=== PATIENT | female | born 1990 | race Caucasian/White ===

== ENCOUNTER 2018-03-30 09:59 | Emergency (ER) | payer BC ==
[2018-03-30 11:10] VITALS: BP 141/99
[2018-03-30] MEDS ORDERED: DOXYcycline CAP(*) 100 MG PO ONE (12:12)
--- NOTE | 2018-03-30 12:13 | ED ---
Skin Complaint - HPI Summary HPI Summary: had tick bite on the abdomen , tick found and dislodged using her fingers, denies any current symptoms, tick in place for less than 24 hours - History of Current Complaint Chief Complaint: UCSkin Time Seen by Provider: 03/30/18 12:04 Stated Complaint: TICK BITE Hx Last Menstrual Period: 03/08/18 Onset/Duration: Started Hours Ago Timing: Constant Onset Severity: Mild Current Severity: None Pain Intensity: 0 Skin Location: Discrete Aggravating Symptom(s): Nothing - Allergy/Home Medications Allergies/Adverse Reactions: Allergies Allergy/AdvReac Type Severity Reaction Status Date / Time No Known Allergies Allergy Verified 03/30/18 11:03 PMH/Surg Hx/FS Hx/Imm Hx Previously Healthy: Yes Infectious Disease History: No Infectious Disease History: Denies: Traveled Outside the [place] in Last 30 Days - Family History Known Family History: Positive: Hypertension - Social History Alcohol Use: Rare Substance Use Type: Reports: None Smoking Status (MU): Never Smoked Tobacco Review of Systems Constitutional: Negative Eyes: Negative ENT: Negative Cardiovascular: Negative Respiratory: Negative Gastrointestinal: Negative Genitourinary: Negative Musculoskeletal: Negative Skin: Negative All Other Systems Reviewed And Are Negative: Yes Physical Exam Triage Information Reviewed: Yes Vital Signs On Initial Exam: Initial Vitals Temp Pulse Resp BP Pulse Ox 36.4 C 88 16 141/99 100 03/30/18 11:04 03/30/18 11:04 03/30/18 11:04 03/30/18 11:04 03/30/18 11:04 Vital Signs Reviewed: Yes Appearance: Positive: Well-Appearing Skin: Positive: Warm, Dry - single lesion on the abdomen , with magnification noted no remaining tick parts, no target lesions seen Eyes: Positive: Normal ENT: Positive: Normal ENT inspection Diagnostics - Vital Signs Vital Signs Temp Pulse Resp BP Pulse Ox 03/30/18 11:04 36.4 C 88 16 141/99 100 - Laboratory Lab Statement: Any lab studies that have been ordered have been reviewed, and results considered in the medical decision making process. Course/Dx - Diagnoses Provider Diagnoses: Tick bite of abdominal wall Is Visit Related: No Discharge - Sign-Out/Discharge Documenting (check all that apply): Patient Departure All imaging exams completed and their final reports reviewed: No Studies - Discharge Plan Condition: Good Disposition: HOME Patient Education Materials: Tick Bite (ED) Referrals: Krista Hurt MD [Primary Care Provider] - - Billing Disposition and Condition Condition: GOOD Disposition: Home
== END 2018-03-30 12:35 | disposition home or self-care (01) ==
LOC: UCCORT 09:59
DX: T63.481A Toxic effect of venom of other arthropod, accidental (unintentional), initial encounter (principal); Y92.9 Unspecified place or not applicable
CPT/HCPCS: 86617; 99212; A9270-GY; G0463

== ENCOUNTER 2019-10-03 08:02 | Emergency (ER) | payer BC ==
--- OUTSIDE RECORDS SUMMARY | 2019-10-03 08:07 | XMS REPORT | Continuity of Care Document ---
:1990 External Reference #:[id number] Author Name Sulaiman Greer M.D. (transmitted by agent of provider Ravi Goel ) Address [address] [place] [address] Care Team Providers Name Role Phone Krista Hurt MD. 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 Provider Date Primigravida Liakristin Toledo CNM Onset: 05/24/2019 Social History Type Date Description Comments Sex Unknown Tobacco Use Start: Unknown Never Smoked Cigarettes ETOH Use Alcohol Use Prior To 1-2 per week Recreational Drug Use Does Not Use Drugs Allergies, Adverse Reactions, Alerts Description No Known Drug Allergies Medications Active Medications SIG Qnty Indications Ordering Provider Date Dha 1 by mouth every Unknown 200mg Capsules day, ok to use 200-400mg dha Immunizations Description No Information Available Vital Signs Date Vital Result Comment 05/11/2019 1:51pm BP Systolic 144 mmHg BP Diastolic 82 mmHg Height 62.75 inches 5'2.75" Weight 193.00 lb BMI (Body Mass Index) 34.5 kg/m2 Last Menstrual Period [id number] 1 Parity 0 Results Test Acquired Date Facility Test Result H/L Range Note Drug Screen 06/14/2019 [facility] Urine None Detected None 1 [place] [address] Hydrocodone Detect [facility] [phone] Screen Urine Oxycodone Screen None Detected None Detect Urine Fentanyl Screen None Detected None Detect Urine Methadone Screen None Detected None Detect Urine Buprenorphine Screen None Detected None Detect Urine Amphetamine Screen None Detected None Detect Urine Barbiturates Screen None Detected None Detect Urine Benzodiazepine Screen None Detected None Detect Urine Cannabinoids Screen None Detected None Detect Urine Cocaine Screen None Detected None Detect Urine Opiates Screen None Detected None Detect Urine Phencyclidine Screen None Detected None Detect 2 GC/Chlamydia Dna 06/14/2019 [facility] Chlamydia Negative Negative 3 [place] [address] trachomatis Lakesha [phone] Neisseria gonorrhoeae (GC) Lakesha Negative Negative [facility] Disclaimer (SEE NOTE) 4 Laboratory test 05/14/2019 [facility] Fta-Abs Negative Negative 5 [place] [address] [phone] PNL No 05/11/2019 [facility] Rubella Immune Immune 6 [place] [address] Screen [phone] Hemoglobin A1c 4.9 % Normal 4.0-5.6 7 Hepatitis B Surface Ag Nonreactive Nonreactive 8 Syphillis Igg W/Reflex RPR Equivocal Abnormal Negative 9 CBC With No 05/11/2019 [facility] White Blood 14.1 10^3/uL High 3.5-10.8 [place] [address] Count [phone] Red Blood Count 4.61 10^6/uL Normal 3.70-4.87 Hemoglobin 14.0 g/dL Normal 12.0-16.0 Hematocrit 42 % Normal 35-47 Mean Corpuscular Volume 91 fL Normal 80-97 Mean Corpuscular Hemoglobin 30 pg Normal 27-31 Mean Corpuscular HGB Conc 33 g/dL Normal 31-36 Red Cell Distribution Width 13 % Normal 10-15 Platelet Count 407 10^3/uL Normal 150-450 Mean Platelet Volume 9.0 fL Normal 7.4-10.4 Type And Screen 05/11/2019 [facility] Patient [place] [address] [phone] Antibody Screen NEGATIVE Lead 05/11/2019 [facility] Lead,Venous, B < 1.0 g/dL 0.0- 4.9 10 [place] [address] [phone] Venous/Capillary Venous Submitting Laboratory Phone [phone] HIV 1&2 p24 05/11/2019 [facility] HIV 4th Nonreactive [place] [address] Generation [phone] Parvovirus 05/11/2019 [facility] Parvovirus Positive Abnormal Negative [address] [place] [address] (B19) IgG Igm [phone] Antibody Parvovirus (B19) IgM Antibody Negative Negative Parvovirus Interpretation See Comment 12 Laboratory test 05/11/2019 [facility] Rapid Nonreactive Nonreactive 13 [place] [address] Plasma [phone] Reagin (RPR) Urine Culture 05/11/2019 [facility] Urine SEE RESULT 14 And [place], [place] [address] Culture BELOW Sensitivities [phone] 1 [id number] 2 The specimen was tested at the listed cutoffs: Drug Class Test level (ng/mL) Hydrocodone 300 Oxycodone 100 Fentanyl 1 Methadone 150 Buprenorphine 5 Amphetamines 500 Barbiturates 200 Benzodiazepines 200 Cocaine 150 Cannabinoids 50 Opiates 300 PCP 25 Specimen was received without chain of custody. Results should be used for medical purposes only. 3 [id number] 4 As with all diagnostic procedures, the laboratory results obtained should be used in conjunction with other clinical information available to the physician, including confirmation by another method, as applicable. 5 No serologic evidence of exposure to syphilis. ADDITIONAL INFORMATION This test is intended to be used as a confirmatory test on samples that have been tested by another syphilis test. Test Performed by: [facility] [employer] [facility] [address] [place] [address] [employer] Work Supervisor: Koffi Merrill M.D. Ph.D.; CLIA# [id number] 6 [id number] 7 Therapeutic target for the treatment of diabetes mellitus patients is <7% HBA1C, and in selective patients <6.0%. Please refer to [place] [employer] diabetic care guidelines for further information. 8 [id number] 9 Repeat testing is recommended in 8-14 days. 10 ADDITIONAL INFORMATION Testing performed by Inductively Coupled Plasma-Mass Spectrometry (ICP-MS). This test was developed and its performance characteristics determined by [facility] in a manner consistent with CLIA requirements. This test has not been cleared or approved by the U.S. Food and Drug Administration. 11 Test Performed by: [facility] [place] [address] [employer] Work Supervisor: Koffi Merrill M.D. Ph.D.; CLIA# [id number] 12 RESULT: Results suggest past infection. ADDITIONAL INFORMATION This test has been modified from the engineering drawings checker's instructions. Its performance characteristics were determined by [facility] in a manner consistent with CLIA requirements. This test has not been cleared or approved by the U.S. Food and Drug Administration. Test Performed by: [facility] [place] [address] [employer] Work Supervisor: Koffi Merrill M.D. Ph.D.; CLIA# [id number] 13 [id number] 14 SEE RESULT BELOW Name: JAMAAL ACEVEDO : [address]: Ann Toledo [facility] Acct: [id number] Unit: [id number] AGE: 29 Location: [facility] Re05/11/19 SEX: F Status: REG REF SPEC: [id number] DELORES: 05/11/19-[address]: Ann Toledo [facility] REQ: [id number] RECD: 05/11/19 STATUS:COMP _ SOURCE: URINE SPDESC: ORDERED: Urine Culture COMMENTS: [id number] Urine Source: Random Procedure Result Reported Site Urine Culture Final 05/12/19- 1416 ML No Growth (<1,000 CFU/mL) * ML - Main Lab . END OF REPORT DEPARTMENT OF PATHOLOGY, [address] [place] [address] Braxton Santana M.D. Director [facility] # [id number] Procedures Date Code Description Status 09/06/2019 53376 Echography Uterus Follow-Up Or Repeat Completed 07/19/2019 64284 Echography Uterus Complete Completed 05/11/2019 20440 OB Ultrasound First Trimester Completed Medical Devices Description No Information Available Encounters Description No Information Available Assessments Date Code Description Provider 09/06/2019 O10.012 Pre-existing essential hypertension Ultrasounds complicating , second trimester 08/19/2019 O10.012 Pre-existing essential hypertension Chris Jauregui , DO complicating , second trimester 07/19/2019 Z36.3 Encounter for screening for Sameer Murry MD malformations 07/19/2019 Z34.02 Encounter for supervision of normal first Ching Blanton CNM , second trimester 07/19/2019 Z36.3 Encounter for screening for Ultrasounds malformations 06/14/2019 Z34.01 Encounter for supervision of normal first Anisha Hernandez CNM , first trimester 05/11/2019 Z36.9 Encounter for screening, Ann Toledo CNM unspecified 05/11/2019 O26.91 related conditions, Tierney Galindo MD unspecified, first trimester 05/11/2019 O26.91 related conditions, Ultrasounds unspecified, first trimester Plan of Treatment Future Appointment(s):10/15/2019 3:00 pm - Rowena Sinclair MD at [facility]09/28/2019 11:30 am - Tierney Galindo MD at [facility] Functional Status Description No Information Available Mental Status Description No Information Available Referrals Description No Information Available
--- OUTSIDE RECORDS SUMMARY | 2019-10-03 08:07 | XMS REPORT | Continuity of Care Document ---
:1990 External Reference #:[id number] Author Name Laboratory (transmitted by agent of provider Milady Hansen) Address [address] [place] [address] Care Team Providers Name Role Phone Krista Hurt MD. - Internal Medicine Care Team Information [employer] Problems Active Problems Provider Date Primigravida Ann Toledo CNM Onset: 05/24/2019 Social History Type [...] Mass Index) 34.5 kg/m2 Last Menstrual Period [id number] 1 Parity 0 Results Test Acquired Date Facility Test Result H/L Range Note Laboratory test 09/06/2019 [facility] Glucose 1 HR 96 mg/dL Normal 70-160 1 [place] [address] Post Prandial [phone] CBC With No 09/06/2019 [facility] White Blood 13.3 High 3.5- 10.8 [place] [address] Count 10^3/uL [phone] Red Blood Count 4.20 10^6/uL Normal 3.70-4.87 Hemoglobin 13.2 g/dL Normal 12.0-16.0 Hematocrit 40 % Normal 35-47 Mean Corpuscular Volume 94 fL Normal 80-97 Mean Corpuscular Hemoglobin 31 pg Normal 27-31 Mean Corpuscular HGB Conc 33 g/dL Normal 31-36 Red Cell Distribution Width 14 % Normal 10-15 Platelet Count 350 10^3/uL Normal 150-450 Mean Platelet Volume 9.0 fL Normal 7.4-10.4 Comp Metabolic 09/06/2019 [facility] Sodium 137 mmol/L Normal 135-145 [place] [address] [phone] Potassium 3.5 mmol/L Normal 3.5-5.0 Chloride 105 mmol/L Normal 101-111 Co2 Carbon Dioxide 25 mmol/L Normal 22-32 Anion Gap 7 mmol/L Normal 2-11 Glucose 98 mg/dL Normal 70-100 Blood Urea Nitrogen 10 mg/dL Normal 6-24 Creatinine 0.59 mg/dL Normal 0.51-0.95 BUN/Creatinine Ratio 16.9 Normal 8-20 Calcium 9.5 mg/dL Normal 8.6-10.3 Total Protein 7.1 g/dL Normal 6.4-8.9 Albumin 3.7 g/dL Normal 3.2-5.2 Globulin 3.4 g/dL Normal 2-4 Albumin/Globulin Ratio 1.1 Normal 1-3 Total Bilirubin 0.30 mg/dL Normal 0.2-1.0 Alkaline Phosphatase 91 U/L Normal 34-104 Alt 13 U/L Normal 7-52 Ast 18 U/L Normal 13-39 Egfr Non- 122.3 >60 Egfr 147.9 >60 2 Laboratory 09/06/2019 [facility] Uric Acid 4.1 mg/dL Normal 2.3-6.6 3 [place] [address] [phone] Drug Screen 06/14/2019 [facility] Urine None None 4 [place] [address] Hydrocodone Detected Detect [facility] [phone] Screen Urine Oxycodone Screen None Detected None [...] Urine Phencyclidine Screen None Detected None Detect 5 GC/Chlamydia Dna 06/14/2019 [facility] Chlamydia Negative Negative 6 [place] [address] trachomatis Lakesha [phone] Neisseria gonorrhoeae (GC) Lakesha Negative Negative [facility] Disclaimer (SEE NOTE) 7 Laboratory 05/14/2019 [facility] Fta-Abs Negative Negative 8 [place] [address] [phone] Urine Culture 05/11/2019 [facility] Urine SEE RESULT 9 [place] [address] Culture BELOW Sensitivities [phone] Laboratory 05/11/2019 [facility] Rapid Nonreactive Nonreactive 10 [place] [address] Plasma [phone] Reagin (RPR) Parvovirus B19 05/11/2019 [facility] Parvovirus Positive Abnorma Negative [place] [address] (B19) IgG l [phone] Antibody Parvovirus (B19) IgM Antibody Negative Negative Parvovirus Interpretation See Comment 11 HIV 1&2 p24 05/11/2019 [facility] HIV 4th [place] [address] Generation [phone] Lead 05/11/2019 [facility] Lead,Venous, B < 1.0 g/dL 0.0- 4.9 12 [place] [address] [phone] Venous/Capillary Venous Submitting Laboratory Phone [phone] Type And Screen 05/11/2019 [facility] Patient [place] [address] [phone] Antibody Screen NEGATIVE CBC With No 05/11/2019 [facility] White Blood 14.1 10^3/uL High 3.5-10.8 [place] [address] Count [phone] Red Blood Count 4.61 10^6/uL Normal 3.70-4.87 Hemoglobin 14.0 g/dL Normal 12.0-16.0 Hematocrit 42 % Normal 35-47 Mean Corpuscular Volume 91 fL Normal 80-97 Mean Corpuscular Hemoglobin 30 pg Normal 27-31 Mean Corpuscular HGB Conc 33 g/dL Normal 31-36 Red Cell Distribution Width 13 % Normal 10-15 Platelet Count 407 10^3/uL Normal 150-450 Mean Platelet Volume 9.0 fL Normal 7.4-10.4 PNL No 05/11/2019 [facility] Rubella Screen Immune Immune 14 [place] [address] [phone] Hemoglobin A1c 4.9 % Normal 4.0-5.6 15 Hepatitis B Surface Ag Nonreactive Nonreactive 16 Syphillis Igg W/Reflex RPR Equivocal Abnormal Negative 17 1 [id number] 2 Because ethnic data is not always readily available, this report includes an eGFR for both -Americans and non- Americans. The National Kidney Disease Education Program (NKDEP) does not endorse the use of the MDRD equation for patients that are not between the ages of 18 and 70, are , have extremes of body size, muscle mass, or nutritional status, or are non- or non-. According to the National Kidney Foundation, irrespective of diagnosis, the stage of the disease is based on the level of kidney function: Stage Description GFR(mL/min/1.73 m(2)) 1 Kidney damage with normal or decreased GFR 90 2 Kidney damage with mild decrease in GFR 60-89 3 Moderate decrease in GFR 30-59 4 Severe decrease in GFR 15-29 5 Kidney failure <15 (or dialysis) 3 [id number] 4 [id number] 5 The specimen was tested at the listed cutoffs: Drug Class Test level (ng/mL) Hydrocodone 300 Oxycodone 100 Fentanyl 1 Methadone 150 Buprenorphine 5 Amphetamines 500 Barbiturates 200 Benzodiazepines 200 Cocaine 150 Cannabinoids 50 Opiates 300 PCP 25 Specimen was received without chain of custody. Results should be used for medical purposes only. 6 [id number] 7 As with all diagnostic procedures, the laboratory results obtained should be used in conjunction with other clinical information available to the physician, including confirmation by another method, as applicable. 8 No serologic evidence of exposure to syphilis. ADDITIONAL INFORMATION This test is intended to be used as a confirmatory test on samples that have been tested by another syphilis test. Test Performed by: [facility] [address] [place] [address] Beach Patrol Lieutenant: Koffi Merrill M.D. Ph.D.; CLIA# [id number] 9 SEE RESULT BELOW Name: JAMAAL ACEVEDO : [address]: Ann Toledo CNM Acct: [id number] Unit: [id number] AGE: 29 Location: [facility] Re05/11/19 SEX: F Status: REG REF SPEC: [id number] DELORES: 05/11/19-[address]: Ann Toledo CNM REQ: [id number] RECD: 05/11/19 STATUS:COMP _ SOURCE: URINE SPDESC: ORDERED: Urine Culture COMMENTS: [id number] Urine Source: Random Procedure Result Reported Site Urine Culture Final 05/12/19- 1416 ML No Growth (<1,000 CFU/mL) * ML - Main Lab . END OF REPORT DEPARTMENT OF PATHOLOGY, [address] [place] [address] Braxton Santana M.D. Director [facility] # [id number] 10 [id number] 11 RESULT: Results suggest past infection. ADDITIONAL INFORMATION This test has been modified from the spool tender's instructions. Its performance characteristics were determined by [facility] in a manner consistent with CLIA requirements. This test has not been cleared or approved by the U.S. Food and Drug Administration. Test Performed by: [facility] - [address] [address] Beach Patrol Lieutenant: Koffi Merrill M.D. Ph.D.; CLIA# [id number] 12 ADDITIONAL INFORMATION Testing performed by Inductively Coupled Plasma-Mass Spectrometry (ICP-MS). This test was developed and its performance characteristics determined by [facility] in a manner consistent with CLIA requirements. This test has not been cleared or approved by the U.S. Food and Drug Administration. 13 Test Performed by: [facility] [address] [place] [address] Beach Patrol Lieutenant: Koffi Merrill M.D. Ph.D.; CLIA# [id number] 14 [id number] 15 Therapeutic target for the treatment of diabetes mellitus patients is <7% HBA1C, and in selective patients <6.0%. Please refer to [place] [employer] diabetic care guidelines for further information. 16 [id number] 17 Repeat testing is recommended in 8-14 days. Procedures Date Code Description Status 09/06/2019 51808 Echography Uterus Follow-Up Or Repeat Completed 07/19/2019 13719 Echography Uterus Complete Completed 05/11/2019 69882 OB Ultrasound First Trimester Completed Medical Devices Description No Information Available Encounters Description No Information Available Assessments Date Code Description Provider 09/06/2019 Z36.9 Encounter for screening, Sameer Murry MD unspecified 09/06/2019 O10.012 Pre-existing essential hypertension Sulaiman Greer M.D. complicating , second trimester 09/06/2019 Z34.82 Encounter for supervision of other normal Sulaiman Greer M.D. , second trimester 09/06/2019 Z36.9 Encounter for screening, Laboratory unspecified 09/06/2019 O10.012 Pre-existing essential hypertension Ultrasounds complicating , second trimester 08/19/2019 O10.012 Pre-existing essential hypertension Chris Jauregui JR, DO complicating , second trimester 07/19/2019 Z36.3 Encounter for screening for Sameer Murry MD malformations 07/19/2019 Z34.02 Encounter for supervision of normal first Ching Blanton CNM , second trimester 07/19/2019 Z36.3 Encounter for screening for Ultrasounds malformations 06/14/2019 Z34.01 Encounter for supervision of normal first Anisha JESUSITA Hernandez , first trimester 05/11/2019 Z36.9 Encounter for screening, Ann Toledo CNM unspecified 05/11/2019 O26.91 related conditions, Tierney Galindo MD unspecified, first trimester 05/11/2019 O26.91 related conditions, Ultrasounds unspecified, first trimester Plan of Treatment Future Appointment(s):10/15/2019 3:00 pm - [facility] at [facility]/2019 11:30 am - Tierney Galindo MD at [facility] Functional Status Description No Information Available Mental Status Description No Information Available Referrals Description No Information Available
--- OUTSIDE RECORDS SUMMARY | 2019-10-03 08:07 | XMS REPORT | Continuity of Care Document ---
:1990 External Reference #:[id number] Author Name Ultrasounds (transmitted by agent of provider Milady Hansen) Address [address] [place] [address] Care Team Providers Name Role Phone Krista Hurt MD. 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 Active Problems Provider Date Primigravida Ann [...] Mass Index) 34.5 kg/m2 Last Menstrual Period 7929264 1 Parity 0 Results Test Acquired Facility Test Result H/L Range Note Date Laboratory test 09/06/2019 [facility] Glucose 1 HR <pending> [place] [address] Post Prandial [phone] Laboratory test 09/06/2019 [facility] Uric Acid <pending> [place] [address] [phone] Drug Screen 06/14/2019 [facility] Urine None None 1 [place] [address] Hydrocodone Detected Detect [facility] [phone] Screen Urine Oxycodone Screen None Detected None [...] Detected None Detect 2 GC/Chlamydia Dna 06/14/2019 [facility] Chlamydia Negative Negative 3 [place] [address] trachomatis Lakesha [phone] Neisseria gonorrhoeae (GC) Lakesha Negative Negative [facility] Disclaimer (SEE NOTE) 4 Laboratory 05/14/2019 [facility] Fta-Abs Negative Negative 5 [place] [address] [phone] Urine Culture 05/11/2019 [facility] Urine SEE RESULT 6 [place] [address] Culture BELOW Sensitivities [phone] Laboratory 05/11/2019 [facility] Rapid Nonreactive Nonreactive 7 [place] [address] Plasma [phone] Reagin (RPR) Parvovirus B19 05/11/2019 [facility] Parvovirus Positive Abnormal Negative I[place] [address] (B19) IgG [phone] Antibody Parvovirus (B19) IgM Antibody Negative Negative Parvovirus Interpretation See Comment 8 HIV 1&2 p24 05/11/2019 [facility] HIV 4th Nonreactive [place] [address] Generation [phone] Lead 05/11/2019 [facility] Lead,Venous, B < 1.0 g/dL 0.0- 4.9 9 [place] [address] [phone] Venous/Capillary Venous Submitting Laboratory Phone [phone] Type And Screen 05/11/2019 [facility] Patient Blood [place] [address] [phone] Antibody Screen NEGATIVE CBC With No 05/11/2019 [facility] White Blood 14.1 10^3/uL High 3.5-10.8 [place] [address] Count [phone] Red Blood Count 4.61 10^6/uL Normal 3.70-4.87 Hemoglobin 14.0 g/dL Normal 12.0-16.0 Hematocrit 42 % Normal 35-47 Mean Corpuscular Volume 91 fL Normal 80-97 Mean Corpuscular Hemoglobin 30 pg Normal 27-31 Mean Corpuscular HGB Conc 33 g/dL Normal 31-36 Red Cell Distribution Width 13 % Normal 10-15 Platelet Count 407 10^3/uL Normal 150-450 Mean Platelet Volume 9.0 fL Normal 7.4-10.4 PNL No 05/11/2019 [facility] Rubella Screen Immune Immune 11 [place] [address] [phone] Hemoglobin A1c 4.9 % Normal 4.0-5.6 12 Hepatitis B Surface Ag Nonreactive Nonreactive 13 Syphillis Igg W/Reflex RPR Equivocal Abnormal Negative 14 1 [id number] 2 The specimen was tested at the listed cutoffs: Drug Class Test level (ng/mL) Hydrocodone 300 Oxycodone 100 Fentanyl 1 Methadone 150 Buprenorphine 5 Amphetamines 500 Barbiturates 200 Benzodiazepines 200 Cocaine 150 Cannabinoids 50 Opiates 300 PCP 25 Specimen was received without chain of custody. Results should be used for medical purposes only. 3 [id number] 4 As with all diagnostic procedures, the [...] by another syphilis test. Test Performed by: [facility] [address] [place] [address] Extension Work Instructor: Koffi Merrill M.D. Ph.D.; CLIA# [id number] 6 SEE RESULT BELOW Name: JAMAAL ACEVEDO : [address]: Ann Toledo [facility] Acct: [id number] Unit: [id number] AGE: 29 Location: [facility] Re05/11/19 SEX: F Status: REG REF SPEC: [id number] DELORES: 05/11/19-[address]: Ann AMBRIZ REQ: [id number] RECD: 05/11/19 STATUS:COMP _ SOURCE: URINE SPDESC: ORDERED: Urine Culture COMMENTS: [id number] Urine Source: Random Procedure Result Reported Site Urine Culture Final 05/12/19- 1416 ML No Growth (<1,000 CFU/mL) * ML - [facility] . END OF REPORT DEPARTMENT OF PATHOLOGY, [address] [place] [address] Braxton Santana M.D. Director [facility] # [id number] RESULT: Results suggest past infection. ADDITIONAL INFORMATION This test has been modified from the scheduler's instructions. Its performance characteristics were determined by [facility] in a manner consistent with CLIA requirements. This test has not been cleared or approved by the U.S. Food and Drug Administration. Test Performed by: [place] [address] Extension Work Instructor: Koffi Merrill M.D. Ph.D.; CLIA# [id number] 9 ADDITIONAL INFORMATION Testing performed by Inductively Coupled Plasma-Mass Spectrometry (ICP-MS). This test was developed and its performance characteristics determined by [facility] in a manner consistent with CLIA requirements. This test has not been cleared or approved by the U.S. Food and Drug Administration. 10 Test Performed by: [place] [address] Extension Work Instructor: Koffi Merrill M.D. Ph.D.; [facility]# [id number] 11 [id number] 12 Therapeutic target for the treatment of diabetes mellitus patients is <7% HBA1C, and in selective patients <6.0%. Please refer to [place] [employer] diabetic care guidelines for further information. 13 [id number] 14 Repeat testing is recommended in 8-14 days. Procedures Date Code Description Status 09/06/2019 97501 Echography Uterus Follow-Up Or Repeat Completed 07/19/2019 99740 Echography Uterus Complete Completed 05/11/2019 07646 OB Ultrasound First Trimester Completed Medical Devices Description No Information Available Encounters Description No Information Available Assessments Date Code Description Provider 09/06/2019 O10.012 Pre-existing essential hypertension Sulaiman Greer M.D. complicating , second trimester 09/06/2019 Z34.82 Encounter for supervision of other normal Sulaiman Greer M.D. , second trimester 09/06/2019 Z36.9 Encounter for screening, Laboratory unspecified 09/06/2019 O10.012 Pre-existing essential hypertension Ultrasounds complicating , second trimester 08/19/2019 O10.012 Pre-existing essential hypertension Chris Juventino , DO complicating , second trimester 07/19/2019 Z36.3 Encounter for screening for Sameer Murry MD malformations 07/19/2019 Z34.02 Encounter for supervision of normal first Ching Blanton [facility] , second trimester 07/19/2019 Z36.3 Encounter for [...] 3:00 pm - Rowena Sinclair MD at [facility]09/28/2019 11:30 am - Tierney Galindo MD at [facility] Functional Status Description No Information Available Mental Status Description No Information Available Referrals Description No Information Available
--- OUTSIDE RECORDS SUMMARY | 2019-10-03 08:07 | XMS REPORT | Continuity of Care Document ---
:1990 External Reference #:[id number] Author Name Laboratory (transmitted by agent of provider Lorri Rutherford) Address [address] [place] [address] Care Team Providers Name Role Phone Krista Hurt MD. - Internal Medicine Care Team Information Rehabilitation Liaison [phone] Problems Active Problems Provider Date Primigravida Ann [...] Mass Index) 34.5 kg/m2 Last Menstrual Period 1232977 1 Parity 0 Results Test Acquired Facility Test Result H/L Range Note Date Laboratory test 09/06/2019 [facility] Glucose 1 HR <pending> [place] [address] Post Prandial [phone] Laboratory test 09/06/2019 [facility] Uric Acid <pending> [place] [address] [phone] Drug Screen 06/14/2019 [facility] Urine None None 1 [place] [address] Hydrocodone Detected Detect [facility] [phone] Screen Urine Oxycodone Screen None Detected None [...] Detected None Detect 2 GC/Chlamydia Dna 06/14/2019 [facility] Chlamydia Negative Negative 3 [place] [address] trachomatis Lakesha [phone] Neisseria gonorrhoeae (GC) Lakesha Negative Negative [facility] Disclaimer (SEE NOTE) 4 Laboratory 05/14/2019 [facility] Fta-Abs Negative Negative 5 [place] [address] [phone] Urine Culture 05/11/2019 [facility] Urine SEE RESULT 6 [place] [address] Culture BELOW Sensitivities [phone] Laboratory 05/11/2019 [facility] Rapid Nonreactive Nonreactive 7 [place] [address] Plasma [phone] Reagin (RPR) Parvovirus B19 05/11/2019 [facility] Parvovirus Positive Abnormal Negative [place] [address] (B19) IgG [phone] Antibody Parvovirus (B19) IgM Antibody Negative Negative Parvovirus Interpretation See Comment 8 HIV 1&2 p24 05/11/2019 [facility] HIV 4th [place] [address] Generation [phone] Lead 05/11/2019 [facility] Lead,Venous, B < 1.0 g/dL 0.0- 4.9 9 [place] [address] [phone] Venous/Capillary Venous Submitting Laboratory Phone [phone] Type And Screen 05/11/2019 [facility] Patient [place] [address] [phone] Antibody Screen NEGATIVE CBC With No 05/11/2019 [facility] White Blood 14.1 10^3/uL High 3.5-10.8 [place] [address] Count [phone] Red Blood Count 4.61 10^6/uL Normal 3.70-4.87 Hemoglobin 14.0 g/dL Normal 12.0-16.0 Hematocrit 42 % Normal 35-47 Mean Corpuscular Volume 91 fL Normal 80-97 Mean Corpuscular Hemoglobin 30 pg Normal 27-31 Mean Corpuscular HGB Conc 33 g/dL Normal 31-36 Red Cell Distribution Width 13 % Normal 10-15 Platelet Count 407 10^3/uL Normal 150-450 Mean Platelet Volume 9.0 fL Normal 7.4-10.4 PNL No 05/11/2019 [facility] Rubella Screen Immune Immune 11 [place] [address] [phone] Hemoglobin A1c 4.9 % Normal 4.0-5.6 12 Hepatitis B Surface Ag Nonreactive Nonreactive 13 Syphillis Igg W/Reflex RPR Equivocal Abnormal Negative 14 1 [id number] 2 The specimen was tested at the listed cutoffs: Drug Class Test level (ng/mL) Hydrocodone 300 Oxycodone 100 Fentanyl 1 Methadone 150 Buprenorphine 5 Amphetamines 500 Barbiturates 200 Benzodiazepines 200 Cocaine 150 Cannabinoids 50 Opiates 300 PCP 25 Specimen was received without chain of custody. Results should be used for medical purposes only. 3 [id number] 4 As with all diagnostic procedures, the [...] another syphilis test. Test Performed by: [facility] [address] [place] [address] Ripper Operator: Koffi Merrill M.D. Ph.D.; CLIA# [id number] 6 SEE RESULT BELOW Name: JAMAAL ACEVEDO : [address]: Ann Toledo [facility] Acct: [id number] Unit: [id number] AGE: 29 Location: [facility] Re05/11/19 SEX: F Status: REG REF SPEC: [id number] DELORES: 05/11/19-[address]: Ann Toledo [facility] REQ: [id number] RECD: 05/11/19 STATUS:COMP _ SOURCE: URINE SPDESC: ORDERED: Urine Culture COMMENTS: [id number] Urine Source: Random Procedure Result Reported Site Urine Culture Final 05/12/19- 1416 ML No Growth (<1,000 CFU/mL) * ML - [facility] . END OF REPORT DEPARTMENT OF PATHOLOGY, [address] [place] [address] Braxton Santana M.D. Director [facility] # [id number] RESULT: Results suggest past infection. ADDITIONAL INFORMATION This test has been modified from the granulator operator's instructions. Its performance characteristics were determined by [facility] in a manner consistent with CLIA requirements. This test has not been cleared or approved by the U.S. Food and Drug Administration. Test Performed by: [facility] [place] [address] Ripper Operator: Koffi Merrill M.D. Ph.D.; CLIA# [id number] 9 ADDITIONAL INFORMATION Testing performed by Inductively Coupled Plasma-Mass Spectrometry (ICP-MS). This test was developed and its performance characteristics determined by [facility] in a manner consistent with CLIA requirements. This test has not been cleared or approved by the U.S. Food and Drug Administration. 10 Test Performed by: [facility] [place] [address] Ripper Operator: Koffi Merrill M.D. Ph.D.; [facility]# [id number] 11 [id number] 12 Therapeutic target for the treatment of diabetes mellitus patients is <7% HBA1C, and in selective patients <6.0%. Please refer to [place] Diabetes Association diabetic care guidelines for further information. 13 [id number] 14 Repeat testing is recommended in 8-14 days. Procedures Date Code Description Status 09/06/2019 84222 Echography Uterus Follow-Up Or Repeat Completed 07/19/2019 76027 Echography Uterus Complete Completed 05/11/2019 44298 OB Ultrasound First Trimester Completed Medical Devices Description No Information Available Encounters Description No Information Available Assessments Date Code Description Provider 09/06/2019 Z36.9 Encounter for screening, Laboratory unspecified 09/06/2019 O10.012 Pre-existing essential hypertension Ultrasounds complicating , second trimester 08/19/2019 O10.012 Pre-existing essential hypertension Chris Jauregui , DO complicating , second trimester 07/19/2019 Z36.3 Encounter for screening for Sameer Murry MD malformations 07/19/2019 Z34.02 Encounter for supervision of normal first Ching Blanton [facility] , second trimester 07/19/2019 Z36.3 Encounter for screening for Ultrasounds malformations 06/14/2019 Z34.01 Encounter for supervision of normal first Anisha Hernandez [facility] , first trimester 05/11/2019 Z36.9 Encounter for screening, PB Flores unspecified 05/11/2019 O26.91 related conditions, Tierney Galindo MD unspecified, first trimester 05/11/2019 O26.91 related conditions, Ultrasounds unspecified, first trimester Plan of Treatment Future Appointment(s):10/15/2019 3:00 pm - Rowena Sinclair MD at [facility]09/28/2019 11:30 am - Tierney Galindo MD at [facility] Functional Status Description No Information Available Mental Status Description No Information Available Referrals Description No Information Available
--- OUTSIDE RECORDS SUMMARY | 2019-10-03 08:07 | XMS REPORT | Continuity of Care Document ---
:1990 External Reference #:[id number] Author Name Sulaiman Greer M.D. (transmitted by agent of provider Milady Hansen) Address [address] [place] [address] Care Team Providers Name Role Phone Krista Hurt MD. - Internal Medicine Care Team Information Bee Tender [phone] Problems Active Problems Provider Date Primigravida Liakristin [...] Mass Index) 34.5 kg/m2 Last Menstrual Period 4541246 1 Parity 0 Results Test Acquired Date Facility Test Result H/L Range Note Laboratory test 09/06/2019 [facility] Glucose 1 HR 96 mg/dL Normal 70-160 1 [place] [address] Post Prandial [phone] CBC With No 09/06/2019 [facility] White Blood 13.3 High 3.5- 10.8 [place] [address] Count 10^3/uL [phone] Red Blood Count 4.20 10^6/uL Normal 3.70-4.87 Hemoglobin 13.2 g/dL Normal 12.0-16.0 Hematocrit 40 % Normal 35-47 Mean Corpuscular Volume 94 fL Normal 80-97 Mean Corpuscular Hemoglobin 31 pg Normal 27-31 Mean Corpuscular HGB Conc 33 g/dL Normal 31-36 Red Cell Distribution Width 14 % Normal 10-15 Platelet Count 350 10^3/uL Normal 150-450 Mean Platelet Volume 9.0 fL Normal 7.4-10.4 Comp Metabolic 09/06/2019 [facility] Sodium 137 mmol/L Normal 135-145 [place] [address] [phone] Potassium 3.5 mmol/L Normal 3.5-5.0 Chloride 105 [...] >60 Egfr 147.9 >60 2 Laboratory 09/06/2019 [facility] Uric Acid 4.1 mg/dL Normal 2.3-6.6 3 [place] [address] [phone] Drug Screen 06/14/2019 [facility] Urine None None 4 [place] [address] Hydrocodone Detected Detect [facility] [phone] Screen Urine Oxycodone Screen None Detected None [...] Detected None Detect 5 GC/Chlamydia Dna 06/14/2019 [facility] Chlamydia Negative Negative 6 [place] [address] trachomatis Lakesha [phone] Neisseria gonorrhoeae (GC) Lakesha Negative Negative [facility] Disclaimer (SEE NOTE) 7 Laboratory 05/14/2019 [facility] Fta-Abs Negative Negative 8 [place] [address] [phone] Urine Culture 05/11/2019 [facility] Urine SEE RESULT 9 [place] [address] Culture BELOW Sensitivities [phone] Laboratory 05/11/2019 [facility] Rapid Nonreactive Nonreactive 10 [place] [address] Plasma [phone] Reagin (RPR) Parvovirus B19 05/11/2019 [facility] Parvovirus Positive Abnorma Negative [place] [address] (B19) IgG l [phone] Antibody Parvovirus (B19) IgM Antibody Negative Negative Parvovirus Interpretation See Comment 11 HIV 1&2 p24 05/11/2019 [facility] HIV 4th Nonreactive [place] [address] Generation [phone] Lead 05/11/2019 [facility] Lead,Venous, B < 1.0 g/dL 0.0- 4.9 12 [place] [address] [phone] Venous/Capillary Venous Submitting Laboratory Phone [phone] Type And Screen 05/11/2019 [facility] Patient Blood [place] [address] [phone] Antibody Screen NEGATIVE CBC With No 05/11/2019 [facility] White Blood 14.1 10^3/uL High 3.5-10.8 [place] [address] Count [phone] Red Blood Count 4.61 10^6/uL Normal 3.70-4.87 Hemoglobin 14.0 g/dL Normal 12.0-16.0 Hematocrit 42 % Normal 35-47 Mean Corpuscular Volume 91 fL Normal 80-97 Mean Corpuscular Hemoglobin 30 pg Normal 27-31 Mean Corpuscular HGB Conc 33 g/dL Normal 31-36 Red Cell Distribution Width 13 % Normal 10-15 Platelet Count 407 10^3/uL Normal 150-450 Mean Platelet Volume 9.0 fL Normal 7.4-10.4 PNL No 05/11/2019 [facility] Rubella Screen Immune Immune 14 [place] [address] [phone] Hemoglobin A1c 4.9 % Normal 4.0-5.6 15 Hepatitis B Surface Ag Nonreactive Nonreactive 16 Syphillis Igg W/Reflex RPR Equivocal Abnormal Negative 17 1 [id number] 2 Because ethnic data is not always [...] 5 Kidney failure <15 (or dialysis) 3 [id number] 4 [id number] 5 The specimen was tested at the listed cutoffs: Drug Class Test level (ng/mL) Hydrocodone 300 Oxycodone 100 Fentanyl 1 Methadone 150 Buprenorphine 5 Amphetamines 500 Barbiturates 200 Benzodiazepines 200 Cocaine 150 Cannabinoids 50 Opiates 300 PCP 25 Specimen was received without chain of custody. Results should be used for medical purposes only. 6 [id number] 7 As with all diagnostic procedures, the [...] another syphilis test. Test Performed by: [facility] [address] [place] [address] Sinter Machine Operator: Koffi Merrill M.D. Ph.D.; CLIA# [id number] 9 SEE RESULT BELOW Name: JAMAAL ACEVEDO : [address]: Ann Toledo [facility] Acct: [id number] Unit: [id number] AGE: 29 Location: [facility] Re05/11/19 SEX: F Status: REG REF SPEC: [id number] DELORES: 05/11/19-[address]: Ann AMBRIZ REQ: [id number] RECD: 05/11/19 STATUS:COMP _ SOURCE: URINE SPDESC: ORDERED: Urine Culture COMMENTS: [id number] Urine Source: Random Procedure Result Reported Site Urine Culture Final 05/12/19- 1416 ML No Growth (<1,000 CFU/mL) * ML - [facility] . END OF REPORT DEPARTMENT OF PATHOLOGY, [address] [place] [address] Braxton Santana M.D. Director [facility] # [id number] RESULT: Results suggest past infection. ADDITIONAL INFORMATION This test has been modified from the agricultural economist's instructions. Its performance characteristics were determined by [facility] in a manner consistent with CLIA requirements. This test has not been cleared or approved by the U.S. Food and Drug Administration. Test Performed by: [facility] [address] [place] [address] Sinter Machine Operator: Koffi Merrill M.D. Ph.D.; CLIA# [id number] 12 ADDITIONAL INFORMATION Testing performed by Inductively Coupled Plasma-Mass Spectrometry (ICP-MS). This test was developed and its performance characteristics determined by [facility] in a manner consistent with CLIA requirements. This test has not been cleared or approved by the U.S. Food and Drug Administration. 13 Test Performed by: [facility] [address] [place] [address] Sinter Machine Operator: Koffi Merrill M.D. Ph.D.; CLIA# [id number] 14 [id number] 15 Therapeutic target for the treatment of diabetes mellitus patients is <7% HBA1C, and in selective patients <6.0%. Please refer to [place] [employer] diabetic care guidelines for further information. 16 [id number] 17 Repeat testing is recommended in 8-14 days. Procedures Date Code Description Status 09/06/2019 32585 Echography Uterus Follow-Up Or Repeat Completed 07/19/2019 88224 Echography Uterus Complete Completed 05/11/2019 34774 OB Ultrasound First Trimester Completed Medical Devices [...] O10.012 Pre-existing essential hypertension Chris Jauregui JR, complicating , second trimester 07/19/2019 Z36.3 Encounter [...] 3:00 pm - Rowena Sinclair MD at [facility]09/28/2019 11:30 am - Tierney Galindo MD at [facility] Functional Status Description No Information Available Mental Status Description No Information Available Referrals Description No Information Available
--- OUTSIDE RECORDS SUMMARY | 2019-10-03 08:07 | XMS REPORT | Continuity of Care Document ---
:1990 External Reference #:[id number] Author Name Sameer Murry MD (transmitted by agent of provider Milady Hansen) Address [address] [place] [address] Care Team Providers Name Role Phone Krista Hurt MD. 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 Problems Provider Date Primigravida [...] day, ok to use 200-400mg dha Immunizations CPT Code Status Date Vaccine Lot # [id number] Given 09/28/2019 Tetnus, Diptheria Toxoids And Acellular Pertussis, [id number] PT > 7Yrs Old Vital Signs Date Vital Result Comment 05/11/2019 1:51pm BP Systolic 144 mmHg BP Diastolic 82 mmHg Height 62.75 inches 5'2.75" Weight 193.00 lb BMI (Body Mass Index) 34.5 kg/m2 Last Menstrual Period [id number] 1 Parity 0 Results Test Acquired Date Facility Test Result H/L Range Note Laboratory test 09/06/2019 [facility] Glucose 1 HR 96 mg/dL Normal 70-160 1 [place] [address] Post Prandial [phone] CBC With No 09/06/2019 [facility] White Blood 13.3 High 3.5- 10.8 [place] [address] Count 10^3/uL [phone] Red Blood Count 4.20 10^6/uL Normal 3.70-4.87 Hemoglobin 13.2 g/dL Normal 12.0-16.0 Hematocrit 40 % Normal 35-47 Mean Corpuscular Volume 94 fL Normal 80-97 Mean Corpuscular Hemoglobin 31 pg Normal 27-31 Mean Corpuscular HGB Conc 33 g/dL Normal 31-36 Red Cell Distribution Width 14 % Normal 10-15 Platelet Count 350 10^3/uL Normal 150-450 Mean Platelet Volume 9.0 fL Normal 7.4-10.4 Comp Metabolic 09/06/2019 [facility] Sodium 137 mmol/L Normal 135-145 [place] [address] [phone] Potassium 3.5 mmol/L Normal 3.5-5.0 Chloride 105 [...] >60 Egfr 147.9 >60 2 Laboratory 09/06/2019 [facility] Uric Acid 4.1 mg/dL Normal 2.3-6.6 3 [place] [address] [phone] Drug Screen 06/14/2019 [facility] Urine None None 4 [place] [address] Hydrocodone Detected Detect [facility] [phone] Screen Urine Oxycodone Screen None Detected None [...] Detected None Detect 5 GC/Chlamydia Dna 06/14/2019 [facility] Chlamydia Negative Negative 6 [place] [address] trachomatis Lakesha [phone] Neisseria gonorrhoeae (GC) Lakesha Negative Negative [facility] Disclaimer (SEE NOTE) 7 Laboratory 05/14/2019 [facility] Fta-Abs Negative Negative 8 [place] [address] [phone] Urine Culture 05/11/2019 [facility] Urine SEE RESULT 9 [place] [address] Culture BELOW Sensitivities [phone] Laboratory 05/11/2019 [facility] Rapid Nonreactive Nonreactive 10 [place] [address] Plasma [phone] Reagin (RPR) Parvovirus B19 05/11/2019 [facility] Parvovirus Positive Abnorma Negative [place] [address] (B19) IgG l [phone] Antibody Parvovirus (B19) IgM Antibody Negative Negative Parvovirus Interpretation See Comment 11 HIV 1&2 p24 05/11/2019 [facility] HIV 4th [place] [address] Generation [phone] Lead 05/11/2019 [facility] Lead,Venous, B < 1.0 g/dL 0.0- 4.9 12 [place] [address] [phone] Venous/Capillary Venous Submitting Laboratory Phone [phone] Type And Screen 05/11/2019 [facility] Patient [place] [address] [phone] Antibody Screen NEGATIVE CBC With No 05/11/2019 [facility] White Blood 14.1 10^3/uL High 3.5-10.8 [place] [address] Count [phone] Red Blood Count 4.61 10^6/uL Normal 3.70-4.87 Hemoglobin 14.0 g/dL Normal 12.0-16.0 Hematocrit 42 % Normal 35-47 Mean Corpuscular Volume 91 fL Normal 80-97 Mean Corpuscular Hemoglobin 30 pg Normal 27-31 Mean Corpuscular HGB Conc 33 g/dL Normal 31-36 Red Cell Distribution Width 13 % Normal 10-15 Platelet Count 407 10^3/uL Normal 150-450 Mean Platelet Volume 9.0 fL Normal 7.4-10.4 PNL No 05/11/2019 [facility] Rubella Screen Immune Immune 14 [place] [address] [phone] Hemoglobin A1c 4.9 % Normal 4.0-5.6 15 Hepatitis B Surface Ag Nonreactive Nonreactive 16 Syphillis Igg W/Reflex RPR Equivocal Abnormal Negative 17 1 [id number] 2 Because ethnic data is not always [...] 5 Kidney failure <15 (or dialysis) 3 [id number] 4 [id number] 5 The specimen was tested at the listed cutoffs: Drug Class Test level (ng/mL) Hydrocodone 300 Oxycodone 100 Fentanyl 1 Methadone 150 Buprenorphine 5 Amphetamines 500 Barbiturates 200 Benzodiazepines 200 Cocaine 150 Cannabinoids 50 Opiates 300 PCP 25 Specimen was received without chain of custody. Results should be used for medical purposes only. 6 [id number] 7 As with all diagnostic procedures, the [...] by another syphilis test. Test Performed by: [facility] [address] [place] [address] Juvenile Probation Officer: Koffi Merrill M.D. Ph.D.; CLIA# [id number] 9 SEE RESULT BELOW Name: KRISTINAJAMAAL M : [address]: Ann Toledo CNM Acct: [id number] Unit: [id number] AGE: 29 Location: [facility] Re05/11/19 SEX: F Status: REG REF SPEC: [id number] DELORES: 05/11/19-[address] [facility] [address]: Ann Toledo CNM REQ: [id number] RECD: 05/11/19 STATUS:COMP _ SOURCE: URINE [facility]: ORDERED: Urine Culture COMMENTS: [id number] Urine Source: Random Procedure Result Reported Site Urine Culture Final 05/12/19- 1416 ML No Growth (<1,000 CFU/mL) * ML - Main Lab . END OF REPORT DEPARTMENT OF PATHOLOGY, [address] [place] [address] Braxton Santana M.D. Director [facility] # [id number] 10 [id number] 11 RESULT: Results suggest past infection. ADDITIONAL INFORMATION This test has been modified from the lumber piler operator's instructions. Its performance characteristics were determined by [facility] in a manner consistent with CLIA requirements. This test has not been cleared or approved by the U.S. Food and Drug Administration. Test Performed by: [facility] [place] [address] Juvenile Probation Officer: Koffi Merrill M.D. Ph.D.; CLIA# [id number] 12 ADDITIONAL INFORMATION Testing performed by Inductively Coupled Plasma-Mass Spectrometry (ICP-MS). This test was developed and its performance characteristics determined by [facility] in a manner consistent with CLIA requirements. This test has not been cleared or approved by the U.S. Food and Drug Administration. 13 Test Performed by: [facility] [place] [address] Juvenile Probation Officer: Koffi Merrill M.D. Ph.D.; CLIA# [id number] 14 [id number] 15 Therapeutic target for the treatment of diabetes mellitus patients is <7% HBA1C, and in selective patients <6.0%. Please refer to [place] [employer] diabetic care guidelines for further information. 16 [id number] 17 Repeat testing is recommended in 8-14 days. Procedures Date Code Description Status 09/06/2019 48321 Echography Uterus Follow-Up Or Repeat Completed 07/19/2019 64941 Echography Uterus Complete Completed 05/11/2019 22980 OB Ultrasound First Trimester Completed Medical Devices Description No Information Available Encounters Description No Information Available Assessments Date Code Description Provider 09/28/2019 O10.013 Pre-existing essential hypertension Sameer Murry MD complicating , third trimester 09/28/2019 Z23 Encounter for immunization Sameer Murry MD 09/06/2019 Z36.9 Encounter for screening, Sameer Murry [...] for supervision of normal first Ching Blanton [facility] , second trimester 07/19/2019 Z36.3 Encounter for screening for Ultrasounds malformations 06/14/2019 Z34.01 Encounter for supervision of normal first Anisha Hernandez CNM , first trimester 05/11/2019 Z36.9 Encounter for screening, Ann Toledo CNM unspecified 05/11/2019 O26.91 related conditions, Tierney Galindo MD unspecified, first trimester 05/11/2019 O26.91 related conditions, Ultrasounds unspecified, first trimester Plan of Treatment Future Appointment(s):10/28/2019 10:30 am - Tierney Galindo MD at [facility] 3:00 pm - Rowena Sinclair MD at [facility] Functional Status Description No Information Available Mental Status Description No Information Available Referrals Description No Information Available
--- OUTSIDE RECORDS SUMMARY | 2019-10-03 08:07 | XMS REPORT | Continuity of Care Document ---
:1990 External Reference #:[id number] Author Name Sameer Murry MD Address [address] [place] [address] Care Team Providers Name Role Phone Krista Hurt MD. 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 Glucose 1 HR 96 mg/dL Normal 70-160 1 [place] [address] Post Prandial [phone] CBC With No 09/06/2019 [facility] White Blood 13.3 High 3.5- 10[place]8 [place] [address] Count 10^3/uL [phone] Red Blood Count 4.20 10^6/uL Normal 3.70-4.87 Hemoglobin 13.2 g/dL Normal 12.0-16.0 Hematocrit 40 % Normal 35-47 Mean Corpuscular Volume 94 fL Normal 80-97 Mean Corpuscular Hemoglobin 31 pg Normal 27-31 Mean Corpuscular HGB Conc 33 g/dL Normal 31-36 Red Cell Distribution Width 14 % Normal 10-15 Platelet Count 350 10^3/uL Normal 150-450 Mean Platelet Volume 9.0 fL Normal 7.4-10.4 Comp Metabolic 09/06/2019 [facility] Sodium 137 mmol/L Normal 135-145 [place] [address] [phone] Potassium 3.5 mmol/L Normal 3.5-5.0 Chloride 105 [...] >60 Egfr 147.9 >60 2 Laboratory 09/06/2019 [facility] Uric Acid 4.1 mg/dL Normal 2.3-6.6 3 [place] [address] [phone] Drug Screen 06/14/2019 [facility] Urine None None 4 [place] [address] Hydrocodone Detected Detect [facility] [phone] Screen Urine Oxycodone Screen None Detected None [...] Detected None Detect 5 GC/Chlamydia Dna 06/14/2019 [facility] Chlamydia Negative Negative 6 [place] [address] trachomatis Lakesha [phone] Neisseria gonorrhoeae (GC) [place]ha Negative Negative [facility] Disclaimer (SEE NOTE) 7 Laboratory 05/14/2019 [facility] Fta-Abs Negative Negative 8 [place] [address] [phone] Urine Culture 05/11/2019 [facility] Urine SEE RESULT 9 [place] [address] Culture BELOW Sensitivities [phone] Laboratory 05/11/2019 [facility] Rapid Nonreactive Nonreactive 10 [place] [address] Plasma [phone] Reagin (RPR) Parvovirus B19 05/11/2019 [facility] Parvovirus Positive Abnorma Negative [place] [address] (B19) IgG l [phone] Antibody Parvovirus (B19) IgM Antibody Negative Negative Parvovirus Interpretation See Comment 11 HIV 1&2 p24 05/11/2019 [facility] HIV 4th [place] [address] Generation [phone] Lead 05/11/2019 [facility] Lead,Venous, B < 1.0 g/dL 0.0- 4.9 12 [place] [address] [phone] Venous/Capillary Venous Submitting Laboratory Phone [phone] Type And Screen 05/11/2019 [facility] Patient [place] [address] [phone] Antibody Screen NEGATIVE CBC With No 05/11/2019 [facility] White Blood 14.1 10^3/uL High 3.5-10.8 [place] [address] Count [phone] Red Blood Count 4.61 10^6/uL Normal 3.70-4.87 Hemoglobin 14.0 g/dL Normal 12.0-16.0 Hematocrit 42 % Normal 35-47 Mean Corpuscular Volume 91 fL Normal 80-97 Mean Corpuscular Hemoglobin 30 pg Normal 27-31 Mean Corpuscular HGB Conc 33 g/dL Normal 31-36 Red Cell Distribution Width 13 % Normal 10-15 Platelet Count 407 10^3/uL Normal 150-450 Mean Platelet Volume 9.0 fL Normal 7.4-10.4 PNL No 05/11/2019 [facility] Rubella Screen Immune Immune 14 [place] [address] [phone] Hemoglobin A1c 4.9 % Normal 4.0-5.6 15 Hepatitis B Surface Ag Nonreactive Nonreactive 16 Syphillis Igg W/Reflex RPR Equivocal Abnormal Negative 17 1 [id number] 2 Because ethnic data is not always [...] 5 Kidney failure <15 (or dialysis) 3 [id number] 4 [id number] 5 The specimen was tested at the listed cutoffs: Drug Class Test level (ng/mL) Hydrocodone 300 Oxycodone 100 Fentanyl 1 Methadone 150 Buprenorphine 5 Amphetamines 500 Barbiturates 200 Benzodiazepines 200 Cocaine 150 Cannabinoids 50 Opiates 300 PCP 25 Specimen was received without chain of custody. Results should be used for medical purposes only. 6 [id number] 7 As with all diagnostic procedures, the [...] by another syphilis test. Test Performed by: [facility] [address] [place] [address] Cigar Packer And Picker: Koffi Merrill M.D. Ph.D.; CLIA# [id number] 9 SEE RESULT BELOW Name: JAMAAL ACEVEDO : [address]: Ann Toledo CNM Acct: [id number] Unit: [id number] AGE: 29 Location: [facility] Re05/11/19 SEX: F Status: REG REF SPEC: [id number] DELORES: 05/11/19-[address]: Ann Toledo CNM REQ: [id number] RECD: 05/11/19 STATUS:COMP _ SOURCE: URINE SPDESC: ORDERED: Urine Culture COMMENTS: [id number] Urine Source: Random Procedure Result Reported Site Urine Culture Final 05/12/19- 1416 ML No Growth (<1,000 CFU/mL) * ML - Main Lab . END OF REPORT DEPARTMENT OF PATHOLOGY, [address] [place] [address] Braxton Santana M.D. Director [facility] # [id number] 10 [id number] 11 RESULT: Results suggest past infection. ADDITIONAL INFORMATION This test has been modified from the supervisor particleboard's instructions. Its performance characteristics were determined by [facility] in a manner consistent with CLIA requirements. This test has not been cleared or approved by the U.S. Food and Drug Administration. Test Performed by: [facility] - [address] [address] Cigar Packer And Picker: Koffi Merrill M.D. Ph.D.; CLIA# [id number] 12 ADDITIONAL INFORMATION Testing performed by Inductively Coupled Plasma-Mass Spectrometry (ICP-MS). This test was developed and its performance characteristics determined by [facility] in a manner consistent with CLIA requirements. This test has not been cleared or approved by the U.S. Food and Drug Administration. 13 Test Performed by: [facility] [address] [place] [address] Cigar Packer And Picker: Koffi Merrill M.D. Ph.D.; CLIA# [id number] 14 [id number] 15 Therapeutic target for the treatment of diabetes mellitus patients is <7% HBA1C, and in selective patients <6.0%. Please refer to [place] [employer] diabetic care guidelines for further information. 16 [id number] 17 Repeat testing is recommended in 8-14 days. Procedures Date Code Description Status 09/06/2019 98529 Echography Uterus Follow-Up Or Repeat Completed 07/19/2019 76396 Echography Uterus Complete Completed 05/11/2019 61330 OB Ultrasound First Trimester Completed Medical Devices Description No Information Available Encounters Description No Information Available Assessments Date Code Description Provider 09/28/2019 O10.013 Pre-existing essential hypertension Sameer Mrury MD complicating , third trimester 09/06/2019 Z36.9 Encounter for screening, Sameer Murry [...] Encounter for supervision of normal first Anisha HernandezJESUSITA , first trimester 05/11/2019 Z36.9 Encounter for screening, PB Flores unspecified 05/11/2019 O26.91 related conditions, Tierney Galindo MD unspecified, first trimester 05/11/2019 O26.91 related conditions, Ultrasounds unspecified, first trimester Plan of Treatment Future Appointment(s):10/28/2019 10:30 am - Tierney Galindo MD at [facility] 3:00 pm - Rowena Sinclair MD at [facility] Functional Status Description No Information Available Mental Status Description No Information Available Referrals Description No Information Available
--- NOTE | 2019-10-03 08:08 | UC ---
Lower Extremity/Ankle HPI - HPI Summary HPI Summary: R ankle pain after injuring on step off injury, inversion. - History of Current Complaint Chief Complaint: UCLowerExtremity Stated Complaint: RT ANKLE INJURY Time Seen by Provider: 10/03/19 08:06 Hx Last Menstrual Period: 03/08/18 - Allergies/Home Medications Allergies/Adverse Reactions: Allergies Allergy/AdvReac Type Severity Reaction Status Date / Time No Known Allergies Allergy Verified 10/03/19 08:09 Home Medications: Home Medications NK [No Home Medications Reported] 10/03/19 [History Confirmed 10/03/19] PMH/Surg Hx/FS Hx/Imm Hx - Additional Past Medical History Additional PMH: no chronic illness - 30 WKS Previously Healthy: Yes - Surgical History Surgical History: None - Family History Known Family History: Positive: Hypertension - Social History Alcohol Use: Rare Substance Use Type: None Smoking Status (MU): Never Smoked Tobacco - Immunization History Most Recent Tetanus Shot: UTD Review of Systems All Other Systems Reviewed And Are Negative: Yes Constitutional: Negative: Fever Skin: Negative: Bruising Musculoskeletal: Positive: Arthralgia, Edema, Myalgia. Negative: Decreased ROM Physical Exam Triage Information Reviewed: Yes Appearance: Well-Appearing Vital Signs Reviewed: Yes Respiratory: Positive: No respiratory distress Musculoskeletal: Positive: ROM Intact - R ankle, Edema @ - mild R ankle Neurological: Positive: Alert Skin: Negative: Other - no bruising Diagnostics - Radiology No standard instances Radiology Interpretation Completed By: Radiologist Summary of Radiographic Findings: REPORT AND IMPRESSION: #. Congruent ankle mortise and normal articular alignment throughout the field of view. #. Negative for fracture or osteochondral lesion. Suggestion of a small bone island at the distal fibula without concern. #. Preserved joint spaces without appreciable arthropathic change. #. Nonfocal soft tissue swelling. Lower Extremity Course/Dx - Course Course Of Treatment: R ankle pain after stepping off an object. Pt is 32wks . Has not taken anything for pain , reminded her that tylenol is safe to take during . XRAY did not show fx, will CONSTANCE wrap and advised to ice and elevate. If worsening should return. vitals WNL. OF NOTE SHE DID HAVE AN EXTREMITY IMAGED BUT WAS DOUBLE PROTECTED WITH LEAD VEST/APRON AND WE DISCUSSED MINIMAL RISKS. - Differential Dx/Diagnosis Differential Diagnosis/HQI/PQRI: Fracture (Closed), Fracture (Open), Sprain, Strain Provider Diagnosis: Right ankle pain Discharge ED - Sign-Out/Discharge Documenting (check all that apply): Patient Departure All imaging exams completed and their final reports reviewed: Yes - Discharge Plan Condition: Good Disposition: HOME Patient Education Materials: Ankle Sprain (ED) Referrals: Krista Hurt MD [Primary Care Provider] - Additional Instructions: If worsening please follow up with local orthopedists. You may take Tylenol for pain and icing helps with pain. - Billing Disposition and Condition Condition: GOOD Disposition: Home
[2019-10-03 08:16] VITALS: BP 131/82
== END 2019-10-03 09:15 | disposition home or self-care (01) ==
LOC: UCCORT 08:02
DX: O26.893 Other specified pregnancy related conditions, third trimester (principal); M25.571 Pain in right ankle and joints of right foot; X50.1XXA Overexertion from prolonged static or awkward postures, initial encounter; Y92.9 Unspecified place or not applicable; Z3A.30 30 weeks gestation of pregnancy
CPT/HCPCS: 99212; G0463

== ENCOUNTER 2019-12-07 17:40 | Inpatient (IN) ==
[2019-12-07] MEDS ORDERED: Lactated Ringers 1000 ml BAG 1,000 ML IV ONE (18:37)
[2019-12-07] MEDS ORDERED: Lactated Ringers 1000 ml BAG 1,000 ML IV SCH (19:00)
[2019-12-07 19:40] LABS: Urine Benzodiazepine Screen None Detected (None Detect); Urine Opiates Screen None Detected (None Detect)
[2019-12-08] MEDS ORDERED: Bupivacaine 0.25% SDV PF* 10 ML VIAL INJ ONE (13:43)
[2019-12-08] MEDS ORDERED: OBEPIDURAL 250 ML EPIDURAL ONE (13:44)
[2019-12-08 14:00] LABS: ABS Eosinophils 0.1 10^3/ul (0-0.6); ABS Lymphocytes 1.6 10^3/ul (1.0-4.8); ABS Monocytes 1.1 10^3/ul (0-0.8); Eosinophil % 0.3 %; Hematocrit 37 % (35-47); Hemoglobin 12.9 g/dL (12.0-16.0); Lymphocyte % 9.6 %; Mean Corpuscular HGB Conc 35 g/dL (31-36); Mean Corpuscular Hemoglobin 32 pg (27-31); Mean Corpuscular Volume 90 fL (80-97); Mean Platelet Volume 8.4 fL (7.4-10.4); Platelet Count 347 10^3/uL (150-450); Red Blood Count 4.11 10^6 /uL (3.70-4.87); Red Cell Distribution Width 13 % (10-15)
[2019-12-08] MEDS ORDERED: Oxytocin in LR 20 UNITS/1,000 ML BAG IVPB SCH ×2 (14:00→20:00)
[2019-12-08] MEDS: OBEPIDURAL 250 ML EPIDURAL SCH ×2 (14:15→15:16)
[2019-12-08] MEDS ORDERED: Phenylephrine 40 mcg/mL 10mL (400mcg) SYRINGE IV PUSH PRN (14:22)
[2019-12-08] MEDS ORDERED: Sodium Citrate/Citric Acid LIQ 15 ML UDC PO PRN (14:22)
[2019-12-08] MEDS ORDERED: Lactated Ringers 1000 ml BAG 1,000 ML IV ONE (14:22)
[2019-12-08] MEDS: Phenylephrine 40 mcg/mL 10mL (400mcg) SYRINGE IV PUSH PRN ×4 (14:49→16:30)
[2019-12-08] MEDS ORDERED: Lactated Ringers 1000 ml BAG 1,000 ML IV SCH ×2 (15:00→20:00)
[2019-12-08 15:23] LABS: Albumin 3.1 g/dL (3.2-5.2); BUN/Creatinine Ratio 13.1 (8-20); Calcium 8.8 mg/dL (8.6-10.3); EGFR African American 142.4 (>60); EGFR Non-African American 117.7 (>60); Globulin 3.2 g/dL (2-4); Potassium 3.6 mmol/L (3.5-5.0); Total Bilirubin 0.5 mg/dL (0.2-1.0); Total Protein 6.3 g/dL (6.4-8.9); Uric Acid 5.2 mg/dL (2.3-6.6)
[2019-12-08] MEDS ORDERED: Dibucaine 1% OINT 28.35 GM TUBE PR PRN (19:34)
[2019-12-08] MEDS ORDERED: Witch Hazel PAD JAR TOPICAL PRN (19:34)
[2019-12-08] MEDS ORDERED: Lidocaine 1% VIAL 10 MG/ML VIAL ONE (19:57)
[2019-12-09 06:43] LABS: ABS Basophils 0.1 10^3/ul (0-0.2); ABS Eosinophils 0.1 10^3/ul (0-0.6); ABS Lymphocytes 2.1 10^3/ul (1.0-4.8); ABS Monocytes 1.2 10^3/ul (0-0.8); Eosinophil % 0.3 %; Hematocrit 38 % (35-47); Lymphocyte % 9.9 %; Mean Corpuscular HGB Conc 34 g/dL (31-36); Mean Corpuscular Hemoglobin 31 pg (27-31); Mean Corpuscular Volume 90 fL (80-97); Platelet Count 320 10^3/uL (150-450); Red Blood Count 4.21 10^6 /uL (3.70-4.87); Red Cell Distribution Width 14 % (10-15); White Blood Count 21.1 10^3/uL (3.5-10.8)
[2019-12-10 07:34] VITALS: BP 127/83
== END 2019-12-10 13:00 | disposition home or self-care (01) | DRG 560 ==
LOC: MCHOBOUT 17:40 → MCHOB 18:38
PROVIDERS: ADMIT Obstetrics & Gynecology; ATTEND Obstetrics & Gynecology

== ENCOUNTER 2024-06-17 17:56 | Inpatient (IN) ==
[2024-06-17] MEDS ORDERED: Prochlorperazine 5 mg/ml 2 ml VIAL (10 mg) IV PRN (20:02)
[2024-06-17] MEDS ORDERED: Nalbuphine 10 MG/ML 1 ML VIAL IV PRN (20:02)
[2024-06-17] MEDS: Dinoprostone 10 MG VAG.SUPP VAGINAL ONE (20:24)
[2024-06-17 20:56] LABS: ABS Eosinophils 0.1 10^3/uL (0.0-0.5); ABS Lymphocytes 2.3 10^3/uL (1.0-4.8); ABS Neutrophils 10.3 10^3/uL (1.5-7.6); Eosinophil % 0.8 %; Hematocrit 36.8 % (35-45); Hemoglobin 12.6 g/dL (11.5-14.3); Mean Corpuscular Hemoglobin 30.4 pg (27-33); Mean Corpuscular Hgb Conc 34.2 g/dL (31-36); Mean Corpuscular Volume 88.9 fL (80-97); Mean Platelet Volume 8.2 fL (7.5-11.2); Platelet Count 336 10^3/uL (150-450); Red Blood Count 4.15 10^6/uL (3.63-4.92); Red Cell Distribution Width 13.3 % (12-17); White Blood Count 13.8 10^3/uL (3.8-11.8)
[2024-06-17 21:11] LABS: Albumin 3.5 g/dL (3.5-5.7); Albumin/Globulin Ratio 1.1 (1-3); Calcium 9.5 mg/dL (8.6-10.3); Creatinine, Serum 0.66 mg/dL (0.51-0.95); Globulin 3.2 g/dL (2-4); Potassium 3.8 mmol/L (3.5-5.0); Total Bilirubin 0.4 mg/dL (0.2-1.0); Total Protein 6.7 g/dL (6.4-8.9); eGFR CKD-EPI 119.5 (>60)
[2024-06-17 21:16] LABS: Urine Benzodiazepine Screen None Detected (None Detect); Urine Cannabinoids Screen None Detected (None Detect); Urine Opiates Screen None Detected (None Detect)
[2024-06-17 21:30] LABS: Urine Creatinine Concentration 49.28 mg/dL (20.00-320.00); Urine TP Creat Ratio 0.16 mg/mg
[2024-06-18] MEDS: Buffered Lidocaine 1% SYRIN 1 ml INTRADERM ONE (01:39)
[2024-06-18] MEDS: Oxytocin in LR 20,000 MILLI.UNIT/1,000 ML BAG IV SCH (09:00)
[2024-06-18] MEDS: Lactated Ringers 1000 ml BAG 1,000 ML IV SCH (09:00)
[2024-06-18] MEDS: OBEPIDURAL (200 ML) 200 ML EPIDURAL SCH (10:00)
[2024-06-18] MEDS ORDERED: Sodium Citrate/Citric Acid LIQ 15 ML UDC PO PRN (10:55)
[2024-06-18] MEDS ORDERED: Phenylephrine 40 mcg/mL 10mL (400mcg) SYRINGE IV PUSH PRN ×2 (10:55)
[2024-06-18] MEDS: Lactated Ringers 1000 ml BAG 1,000 ML IV ONE ×2 (12:17→14:15)
[2024-06-18] MEDS: OBEPIDURAL (200 ML) 200 ML EPIDURAL ONE (14:15)
[2024-06-18] MEDS: Lidocaine 1.5% EPI 1:200,000 30 ML SDV ONE (14:15)
[2024-06-18] MEDS: miSOPROStol 100 mcg TAB VAGINAL ONE ×2 (19:28→23:43)
[2024-06-19] MEDS ORDERED: Glycerin ADULT 2.4 gm SUPP PR PRN (10:29)
[2024-06-19] MEDS ORDERED: Lactated Ringers 1000 ml BAG 1,000 ML IV SCH (11:00)
[2024-06-19] MEDS: Witch Hazel PAD JAR TOPICAL PRN (11:12)
[2024-06-19] MEDS: Dibucaine 1% OINT 28.35 GM TUBE PR PRN (11:12)
[2024-06-19 12:05] LABS: RPR Nonreactive (Nonreactive)
[2024-06-19] MEDS: Oxytocin in LR 20,000 MILLI.UNIT/1,000 ML BAG IV SCH (12:48)
[2024-06-19] MEDS: Lactated Ringers 1000 ml BAG 1,000 ML IV SCH (13:40)
[2024-06-19] MEDS: Lidocaine 1% VIAL 10 MG/ML 30 ML VIAL INJ PRN (15:13)
[2024-06-19] MEDS: Lidocaine 1% VIAL 10 MG/ML 30 ML VIAL ONE (15:15)
[2024-06-19] MEDS: Phenylephrine 40 mcg/mL 10mL (400mcg) SYRINGE ONE (23:23)
[2024-06-19] MEDS: Lidocaine 1.5% EPI 1:200,000 30 ML SDV ONE (23:23)
[2024-06-20 06:35] LABS: ABS Basophils 0.1 10^3/uL (0.0-0.1); ABS Eosinophils 0.1 10^3/uL (0.0-0.5); ABS Lymphocytes 2.2 10^3/uL (1.0-4.8); ABS Monocytes 0.8 10^3/uL (0.0-0.9); ABS Neutrophils 13.1 10^3/uL (1.5-7.6); ABS Nucleated RBC 0.01 10^3/ul; Eosinophil % 0.8 %; Hemoglobin 11.9 g/dL (11.5-14.3); Lymphocyte % 13.4 %; Mean Corpuscular Hemoglobin 30.4 pg (27-33); Mean Corpuscular Hgb Conc 34.1 g/dL (31-36); Mean Corpuscular Volume 89.3 fL (80-97); Mean Platelet Volume 8.3 fL (7.5-11.2); Platelet Count 314 10^3/uL (150-450); Red Blood Count 3.92 10^6/uL (3.63-4.92); Red Cell Distribution Width 13.4 % (12-17); White Blood Count 16.2 10^3/uL (3.8-11.8)
[2024-06-20 07:52] VITALS: BP 124/81
[2024-06-21 14:45] LABS: T.Pallidum TP-PA Negative (Negative)
== END 2024-06-20 12:20 | disposition home or self-care (01) | DRG 560 ==
LOC: MCHOBOUT 17:56 → MCHOB 19:50
PROVIDERS: ADMIT Obstetrics & Gynecology; ATTEND Obstetrics & Gynecology